=== PATIENT | female | born 1965 | race Caucasian/White ===

== ENCOUNTER 2019-02-23 21:49 | Emergency (ER) | payer OTHER ==
[~2019-02-23] VITALS: Ht 157.4 cm; Wt 90.7 kg
--- NOTE | ~2019-02-23 | EKG ---
[place], [place] ELECTROCARDIOGRAM REPORT NAME: MAHIN VICKERS UNIT #: [id number] ROOM: DOCTOR: EPIPHANY DRAFT REPORT BIRTHDATE: [birth year] [facility] Test Date: 2019-02-23 Test Time: 21:54:20 Pat Name: MAHIN VICKERS Department: ER Room: Gender: F Card Decorator: : 1965 Requested By: ANN MASTERSON Order Number: [id number] Reading MD: Julio César Holland MD Measurements Intervals [place] Rate: 74 P: 48 TX: 131 QRS: 27 QRSD: 94 T: 41 QT: 391 QTc: 434 Interpretive Statements Sinus rhythm Low voltage, precordial leads Electronically Signed On 02-24-2019 16:08:20 PDT by Julio César Holland MD CM:[email or web address]:ELECTROCARDIOGRAM REPORT [id number] ANN GILMORE DRAFT REPORT ANN MASTERSON DO
[2019-02-23 22:34] LABS: BASO % 0.3 % (0.0-1.0); EOS # 0.1 10*3/uL (0.0-0.4); EOS % 1.2 % (1.0-4.0); HEMATOCRIT 43.7 % (37.0-47.0); HEMOGLOBIN 14.1 g/dl (12.0-16.0); LYMPH # 2.9 10*3/uL (1.3-4.4); LYMPH % 26.7 % (27.0-41.0); MEAN CELL VOLUME 93.8 fl (81.0-99.0); MEAN CORPUSCULAR HGB 30.3 pg (27.0-31.0); MEAN CORPUSCULAR HGB CONC 32.3 g/dl (33.0-37.0); MEAN PLATELET VOLUME 10.4 fl (9.6-12.3); MONO # 0.7 10*3/uL (0.1-1.0); MONO % 6.2 % (3.0-9.0); NEUT # 7.2 10*3/uL (2.3-7.9); NEUT % 65.3 % (47.0-73.0); PLATELET COUNT AUTOMATED 246 10*3/uL (130-400); RED BLOOD COUNT 4.66 10*6/uL (4.10-5.10); RED CELL DISTRI WIDTH 13.3 % (0-14.5)
[2019-02-23 22:47] LABS: ACT PARTIAL THROMBO TIME 21.7 SECONDS (20.0-32.1); INTERNATIONAL NORM RATIO 0.9 (2.0-3.5)
[2019-02-23 22:52] LABS: ALBUMIN 3.3 gm/dl (3.1-4.5); ALKALINE PHOSPHATASE 69 U/L (45-117); BUN 21 mg/dl (7-24); CHLORIDE 107 mmol/L (98-107); CREATININE 1.08 mg/dL (0.55-1.02); POTASSIUM 3.8 mmol/L (3.5-5.1); SGOT/AST 38 IU/L (3-35); SGPT/ALT 38 U/L (12-78); SODIUM 141 mmol/L (136-145); TOTAL PROTEIN 6.6 gm/dL (6.4-8.2)
[2019-02-23 22:58] LABS: TROPONIN I < 0.015 ng/ml (<0.045)
== END 2019-02-23 23:20 | disposition home or self-care (01) ==
LOC: ED 21:49
PROVIDERS: Student in an Organized Health Care Education/Training Program
DX: R07.9 Chest pain, unspecified (principal); R06.02 Shortness of breath; R11.0 Nausea; R61 Generalized hyperhidrosis

== ENCOUNTER → 2019-03-19 | Outpatient (CLI) | payer OTHER ==
[2019-03-19 11:13] LABS: CHOLESTEROL 218 mg/dL (<200); HDL CHOLESTEROL 50 mg/dl (40-60); LDL CHOLESTEROL 128 mg/dL (9-159); TRIGLYCERIDES 198 mg/dl (<150); VLDL CHOLESTEROL 40 mg/dL (6-40)
== END | disposition home or self-care (01) ==
LOC: LAB 10:17
PROVIDERS: Internal Medicine
DX: R07.9 Chest pain, unspecified (principal)

== ENCOUNTER → 2019-03-24 | Outpatient (CLI) | payer OTHER ==
--- NOTE | 2019-03-24 08:37 | NUR ---
INFORMED CONSENT OBTAINED FOR A STANDARD STRESS TEST WITH DR. MARTINEZ. RESTING EKG NSR WITH A SUPINE HT RT OF 71, AND BP OF 128/70. STANDING HT RT OF 77, WITH A BP OF 126/72. PT COMPLETED 7:00 MINUTES OF A CARA PROTOCOL WITH COMPLETION OF ONE MINUTE INTO STAGE III AT 3.4 MPH AND A 14% GRADE. REACHED A PEAK HT RT OF 162 WHICH IS 98% OF PREDICTED MAX WITH A PEAK BP OF 170/72. TEST TERMINATED DUE TO FATIGUE. EKG NONDIAGNOSTIC. HAS A GOOD EXERCISE TOLERANCE. LAST RECOVERY HT R TOF 88, WITH A BP OF 150/70. DISCHARGED TO HOME IN STABLE CONDITION.
== END | disposition home or self-care (01) ==
LOC: CARD 00:29
DX: R07.9 Chest pain, unspecified (principal)

== ENCOUNTER 2020-10-31 20:40 | Emergency (ER) | payer OTHER ==
[~2020-10-31] VITALS: Ht 160 cm; Wt 93.0 kg
[2020-10-31 20:58] LABS: BASO % 0.5 % (0.0-1.0); EOS # 0.1 10*3/uL (0.0-0.4); EOS % 1.6 % (1.0-4.0); HEMATOCRIT 41.1 % (37.0-47.0); LYMPH # 2.3 10*3/uL (1.3-4.4); MEAN CELL VOLUME 92.4 fl (81.0-99.0); MEAN CORPUSCULAR HGB 29.7 pg (27.0-31.0); MEAN CORPUSCULAR HGB CONC 32.1 g/dl (33.0-37.0); MEAN PLATELET VOLUME 10.2 fl (9.6-12.3); MONO # 0.6 10*3/uL (0.1-1.0); NEUT # 5.2 10*3/uL (2.3-7.9); NEUT % 62.8 % (47.0-73.0); PLATELET COUNT AUTOMATED 235 10*3/uL (130-400); RED BLOOD COUNT 4.45 10*6/uL (4.10-5.10); RED CELL DISTRI WIDTH 13.3 % (0-14.5); WHITE BLOOD COUNT 8.3 10*3/uL (4.8-10.8)
[2020-10-31 21:14] LABS: ALBUMIN 3.2 gm/dl (3.1-4.5); ALKALINE PHOSPHATASE 72 U/L (45-117); BUN 27 mg/dl (7-24); CHLORIDE 112 mmol/L (98-107); CREATININE 0.87 mg/dL (0.55-1.02); POTASSIUM 3.5 mmol/L (3.5-5.1); SGOT/AST 30 IU/L (3-35); SGPT/ALT 35 U/L (12-78); SODIUM 143 mmol/L (136-145); TOTAL PROTEIN 6.5 gm/dL (6.4-8.2)
[2020-10-31 21:15] LABS: TROPONIN I < 0.015 ng/ml (<0.045)
== END 2020-10-31 21:41 | disposition home or self-care (01) ==
LOC: ED 20:40
PROVIDERS: Internal Medicine
DX: R07.89 Other chest pain (principal); N17.9 Acute kidney failure, unspecified; Z88.0 Allergy status to penicillin

== ENCOUNTER 2021-10-23 01:51 | Emergency (ER) | payer SELFPAY ==
[~2021-10-23] VITALS: Ht 157.4 cm; Wt 90.7 kg
[2021-10-23] MEDS ORDERED: ASPIRIN CHEWABL81 MG PO (02:06)
[2021-10-23 02:13] LABS: BASO # 0.1 10*3/uL (0.0-0.1); BASO % 0.7 % (0.0-1.0); EOS # 1.2 10*3/uL (0.0-0.4); EOS % 11.4 % (1.0-4.0); HEMATOCRIT 45.4 % (37.0-47.0); LYMPH # 2.3 10*3/uL (1.3-4.4); LYMPH % 22.5 % (27.0-41.0); MEAN CELL VOLUME 90.3 fl (81.0-99.0); MEAN CORPUSCULAR HGB 29.8 pg (27.0-31.0); MEAN PLATELET VOLUME 10.4 fl (9.6-12.3); MONO # 0.6 10*3/uL (0.1-1.0); MONO % 6.2 % (3.0-9.0); PLATELET COUNT AUTOMATED 264 10*3/uL (130-400); RED BLOOD COUNT 5.03 10*6/uL (4.10-5.10); WHITE BLOOD COUNT 10.2 10*3/uL (4.8-10.8)
[2021-10-23 02:24] LABS: ACT PARTIAL THROMBO TIME 25.7 SECONDS (20.0-32.1)
[2021-10-23 02:28] LABS: ALKALINE PHOSPHATASE 63 U/L (45-117); BUN 23 mg/dl (7-24); CHLORIDE 107 mmol/L (98-107); CREATININE 0.88 mg/dL (0.55-1.02); POTASSIUM 3.7 mmol/L (3.5-5.1); SGOT/AST 15 IU/L (3-35); SGPT/ALT 29 U/L (12-78); SODIUM 140 mmol/L (136-145); TOTAL PROTEIN 7.5 gm/dL (6.4-8.2)
[2021-10-23] MEDS ORDERED: DICYCLOMINE HYD20 MG PO (05:06)
== END 2021-10-23 05:08 | disposition home or self-care (01) ==
LOC: ED 01:51
PROVIDERS: Emergency Medicine
DX: R07.9 Chest pain, unspecified (principal); Z88.0 Allergy status to penicillin; Z79.82 Long term (current) use of aspirin; Z90.89 Acquired absence of other organs